=== PATIENT | male | born 1985 | race Caucasian/White ===

== ENCOUNTER 2017-08-14 15:23 | Emergency (ER) | payer MEDICARE, MEDICAID ==
--- NOTE | 2017-08-14 16:42 | RAD ---
RIGHT HIP TWO VIEWS: 08/14/17 HISTORY: Right hip pain. FINDINGS: Mild osteophytosis and subchondral sclerosis. No acute fracture, dislocation, or aggressive osseous e rosions. IMPRESSION: Very mild osteoarthritic changes right hip. POS: [facility]
[2017-08-14 16:47] LABS: Bilirubin Negative (Negative); Blood, Urine Negative (Negative); Clarity Clear (Clear); Glucose, Urine (Dipstick) Negative (Negative); Leukocyte Negative (Negative); Nitrite Negative (Negative); Protein, Urine (Dipstick) Negative (Neg-Trace); Specific Gravity, Urine 1.015 (1.005-1.030); Urobilinogen 0.2 mg/dL (0.2-1.0)
[2017-08-14 16:55] LABS: Amphetamine Not Detected (NotDetected); Barbiturates Screen Not Detected (NotDetected); Benzodiazepine Screen Not Detected (NotDetected); Cocaine Metabolite Screen Not Detected (NotDetected); Medtox Control Line Valid? VALID (VALID); Methadone Not Detected (NotDetected); Methamphetamine Not Detected (NotDetected); Opiate Screen Not Detected (NotDetected); Oxycodone Screen Not Detected (NotDetected); Phencyclidine (PCP) Not Detected (NotDetected); THC/Cannabinoid Screen Not Detected (NotDetected); Tricyclic Screen Not Detected (NotDetected)
[2017-08-14 16:59] LABS: #Basophils 0.1 thou/uL (0.0-0.2); #Eosinphils 0.2 thou/uL (0.0-0.7); #Lymphocytes 2.2 thou/uL (1.20-3.40); #Monocytes 0.3 thou/uL (0.11-0.59); #Neutrophils 3.5 thou/uL (1.40-6.50); %Basophils 2.2 % (0.0-1.0); %Eosinophils 3.4 % (0.0-10.0); %Lymphocytes 35.1 % (21.0-51.0); %Monocytes 5.3 % (0.0-10.0); Acetaminophen Less than 6.0 mcg/mL (10.0-30.0); Alcohol Less than 10 mg/dL (Less than 10); Hemoglobin 14.7 g/dL (14.0-18.0); Mean Corpuscular HGB CONC 34.2 g/dL (32.0-36.0); Mean Corpuscular Hemoglobin 32.6 pg (27.0-31.0); Mean Corpuscular Volume 95.2 fl (80.0-94.0); Mean Platelet Volume 7.6 fL (7.4-10.4); Platelet Count 202 thou/uL (130-400); RBC Distribution Width 11.8 % (11.5-14.5); Salicylate Less than 8.0 mg/dL (15.0-30.0); White Blood Cell (WBC) Count 6.4 thou/uL (4.8-10.8)
[2017-08-14 17:06] LABS: Bacteria/HPF Rare-Few HPF (None Seen); RBC/HPF None Seen HPF (0-3); Squamous Epithelial 0-3 HPF (0-3); WBC/HPF None Seen HPF (0-3)
[2017-08-14 17:10] LABS: ALT (SGPT) 18 U/L (8-55); AST (SGOT) 24 U/L (5-34); Alkaline Phosphatase 67 U/L (40-150); Anion Gap 15 mmol/L (10-20); BUN (Urea Nitrogen) 9 mg/dL (8.9-20.6); Bilirubin, Total 0.3 mg/dL (0.2-1.2); Calc. Creatinine Clearance 0 mL/min (70-130); Calcium 9.5 mg/dL (7.8-10.44); Carbon Dioxide 24 mmol/L (22-29); Chloride 106 mmol/L (98-107); Estimated GFR-MDRD Greater than 90; Globulin 2.6 g/dL (2.4-3.5); Glucose 100 mg/dL (70-105); Potassium 3.7 mmol/L (3.5-5.1); Protein, Total 6.6 g/dL (6.0-8.3); Sodium 141 mmol/L (136-145)
[2017-08-14] MEDS ORDERED: Naproxen 500 MG TAB ONE (17:14)
--- NOTE | 2017-08-14 18:14 | RAD ---
CHEST ONE VIEW 08/14/17 HISTORY: Altered mental status. COMPARISON: None. FINDINGS: The lungs are clear. No pneumothorax or effusion. The cardiac silhouette and mediastinal contours are of normal limits. IMPRESSION: No acute intrathoracic abnormality. POS: [facility]
== END 2017-08-14 20:40 | disposition home or self-care (01) ==
LOC: MADERS 15:23
DX: S70.01XA Contusion of right hip, initial encounter (principal); F31.9 Bipolar disorder, unspecified; F17.200 Nicotine dependence, unspecified, uncomplicated; X58.XXXA Exposure to other specified factors, initial encounter
CPT/HCPCS: 36415; 71045; 80053; 80306; 80307; 81001; 85025; 85652; 87086

== ENCOUNTER 2019-07-04 14:07 | Emergency (ER) | payer MEDICARE, MEDICAID ==
[2019-07-04] MEDS ORDERED: Loratadine 10 MG TAB ONE (14:40)
== END 2019-07-04 14:45 | disposition home or self-care (01) ==
LOC: MADERS 14:07
DX: J30.2 Other seasonal allergic rhinitis (principal); F31.9 Bipolar disorder, unspecified; M19.90 Unspecified osteoarthritis, unspecified site; F17.210 Nicotine dependence, cigarettes, uncomplicated; Z59.9 Problem related to housing and economic circumstances, unspecified
CPT/HCPCS: 99283

== ENCOUNTER 2021-01-21 07:45 | Emergency (ER) | payer MEDICARE, MEDICAID ==
[2021-01-21] MEDS ORDERED: Ibuprofen 800 MG TAB ONE (09:15)
== END 2021-01-21 09:13 | disposition home or self-care (01) ==
LOC: MADERS 07:45
DX: S99.921A Unspecified injury of right foot, initial encounter (principal); F17.210 Nicotine dependence, cigarettes, uncomplicated; W22.8XXA Striking against or struck by other objects, initial encounter